=== PATIENT | male | born 1975 ===

== ENCOUNTER 2025-05-05 12:48 | Emergency (ER) | payer MEDICAID ==
[~2025-05-05] VITALS: Ht 172.7 cm; Wt 77.1 kg
[2025-05-05 12:52] VITALS: BP 129/80
[2025-05-05 13:09] LABS: *BILIRUBIN,URIN NEGATIVE (NEGATIVE); *BLOOD, URINE NEGATIVE (NEGATIVE); *CLARITY,URINE CLEAR (CLEAR); *COLOR,URINE YELLOW (YELLOW); *KETONES,URINE NEGATIVE (NEGATIVE); *PROTEIN,URINE NEGATIVE (NEGATIVE); *UROBILINOGEN,URINE 0.2 E.U./dl (NORMAL); LEUKOCYTE ESTERASE ,URINE NEGATIVE (NEGATIVE); NITRITE, URINE NEGATIVE (NEGATIVE); UGLUCOSE NEGATIVE (NEGATIVE)
[2025-05-05] MEDS ORDERED: OXYCODONE/APAP 5-325 MG TABLET ONE (13:31)
[2025-05-05] MEDS ORDERED: METHOCARBAMOL 500 MG TABLET ONE (13:32)
[2025-05-05] MEDS: OXYCODONE/APAP 5-325 MG TABLET PO ONE (13:34)
[2025-05-05] MEDS: METHOCARBAMOL 500 MG TABLET PO ONE (13:35)
[2025-05-05 13:50] LABS: PLATELET COUNT (AUTO) 272 K/uL (152-348); RED BLOOD CELL COUNT(AUTO) 4.95 MIL/uL (4.06-5.63); RED CELL DISTRIBUTION WIDTH 13.1 % (12.1-16.2); WHITE BLOOD COUNT (AUTO) 6.4 K/uL (3.6-10.2)
[2025-05-05 14:04] LABS: ASPARTATE AMINOTRANSFERASE 16.0 U/L (15-37); CREATININE 0.8 mg/dL (0.6-1.3); SODIUM SERUM 140.0 mmol/L (136-145); TOTAL PROTEIN, SERUM 7.5 g/dL (6.4-8.2); UREA NITROGEN, BLOOD 16.0 mg/dL (7-18)
[2025-05-05] MEDS ORDERED: METH-807 PO (14:18)
[2025-05-05] MEDS ORDERED: OXYC-128 PO (14:18)
[2025-05-05 15:06] VITALS: BP 120/71; O2SAT 99
== END 2025-05-05 15:06 | disposition home or self-care (01) ==
LOC: ER 12:55
DX: S39.012A Strain of muscle, fascia and tendon of lower back, initial encounter (principal); Z87.442 Personal history of urinary calculi; X58.XXXA Exposure to other specified factors, initial encounter; Y93.89 Activity, other specified; Y92.89 Other specified places as the place of occurrence of the external cause; Y99.9 Unspecified external cause status
CPT/HCPCS: 36415; 72100; 85025; A4606; A4663